=== PATIENT | male | born 1955 | race Caucasian/White ===

== ENCOUNTER 2023-10-08 06:59 | Day surgery (SDC) | payer MEDICARE, SELFPAY ==
[2023-10-08] VITALS (18 sets, daily range): BP systolic 98–125; BP diastolic 59–83; BMI 30.1
[2023-10-08 07:46] LABS: Glucose - Point of Care 105 mg/dl (70-99)
[2023-10-08 07:47] LABS: Hematocrit 43.2 % (39.0-52.0); Mean Corp Hgb Conc. 34.7 g/dL (33.0-37.0); Mean Corpuscular Hgb 28.4 pg (27.0-31.0); Mean Corpuscular Volume 81.8 fL (80.0-94.0); Mean Platelet Volume 9.7 fL (7.4-10.4); Platelet Count 247 10^3/uL (130-400); Red Blood Cell Count 5.28 10^6/uL (4.70-6.10); Red Cell Dist. Width 15.8 % (11.5-14.5); White Blood Cell Count 7.7 10^3/uL (4.8-10.8)
[2023-10-08 07:53] LABS: Blood Urea Nitrogen 24 mg/dl (9-20); Calcium 9.2 mg/dl (8.4-10.2); Carbon Dioxide 30 mmol/L (22-30); Chloride 103 mmol/L (98-107); Estimated Creatinine Clearance 76 ml/min; Glucose 109 mg/dl (70-99); Potassium 3.8 mmol/L (3.5-5.1); Sodium 136 mmol/L (135-145); eGFR > 60.00
[2023-10-08 08:04] LABS: APTT 25.6 Sec (23.4-35.0); INR 0.95; PT 12.4 Sec (11.4-14.6)
--- NOTE | 2023-10-08 08:44 | W.SUR.PREOP ---
Pre-Operative Surgical Note
-
I have examined this patient prior to the performance of the scheduled procedure.
The patient's condition is unchanged from the time of the current History and
Physical and the patient is able to undergo the scheduled procedure.
[2023-10-08] MEDS: SUBLIMAZE 50 MCG IV ×2 (10:20→10:36)
[2023-10-08 12:24] LABS: Glucose - Point of Care 64 mg/dl (70-99)
[2023-10-08 12:51] LABS: Glucose - Point of Care 70 mg/dl (70-99)
[2023-10-08 13:15] LABS: Glucose - Point of Care 88 mg/dl (70-99)
--- NOTE | 2023-10-08 14:51 | OR.RPT ---
Addendum entered and electronically signed by Mihai Guillory III, MD 10/08/23 15:06:
Please note:
History and indications for Procedure in the op note were entered in error. The indication for the procedure on Mr. Yaniv Garcia was for critical limb threatening ischemia with non-healing foot wounds on the left.
Mihai Guillory III, MD
Original Note:
Operative Report
Operative Report
Date of Operation: October 08, 2023
Pre Op Diagnosis: Critical limb threatening ischemia with nonhealing wounds on the left foot
Post Op Diagnosis: Critical limb threatening ischemia with nonhealing wounds on the left foot
Procedure:
1.) Intravascular lithotripsy of left origin/proximal anterior tibial artery stenosis (3.5 mm S4 shockwave catheter)
2.) Intravascular lithotripsy of calcified left above-knee popliteal artery stenosis (6 mm M5 shockwave catheter)
3.) Diagnostic aortobiiliac arteriogram
4.) Diagnostic left lower extremity arteriogram
5.) Ultrasound-guided right common femoral artery access
Surgeon: Mihai Guillory III, MD
Film Painter: Silvio Cotter MD PGY-1
Anesthesia: Sedation with local
Fluoroscopy:
26.1 min
237 mGy
61.02 Gy.cm2
Complications: None
Estimated Blood Loss: 10 cc
History and Indications for Procedure: 79-year-old male with thrombosed right lower extremity bypass status post initiation of arterial thrombolysis on 10/07/2023. He was brought back to the operating room for a lysis check.
Procedure in Detail: Yaniv Garcia was correctly identified and placed supine on the operating table. After adequate induction of anesthesia the bilateral groins were prepped and draped in the usual sterile fashion. A timeout was performed with the
nursing and anesthesia staff confirming the patient's identity as well as the nature and laterality of the procedure.
The right common femoral artery was identified under ultrasound guidance. The artery was patent. The superior and inferior aspects of the femoral head were identified with radiographic guidance and marked at the skin level. The proposed puncture
site was infiltrated with local anesthesia. We saved a copy of the ultrasound image to the medical record. Under ultrasound guidance we accessed the right common femoral artery with a micropuncture needle and upsized to a 5 Fr sheath over a MyFuelUpson
wire. The wire and a Shepherds hook flush catheter were advanced into the distal abdominal aorta and a diagnostic aorto-biiliac arteriogram was performed:
AORTO-ILIAC ARTERIOGRAM:
Aorta: Patent with no stenosis identified
Right common iliac artery: Patent with no stenosis identified
Right external iliac artery: Patent with no stenosis identified
Left common iliac artery: Patent with no stenosis identified
Left external iliac artery: Patent with no stenosis identified
Under roadmap guidance using a Glidewire and the Shepherds hook catheter we selected the left common iliac artery and then the external iliac artery. A Quickcross catheter was tracked up and over the aortic bifurcation and placed in the distal
external iliac artery. A diagnostic left lower extremity arteriogram was then performed which demonstrated the following:
LEFT LOWER EXTREMITY:
Common femoral artery: Patent with no stenosis identified
Profunda femoral artery: Patent with no stenosis identified
Superficial femoral artery: Patent. Stents present in the proximal and mid to distal portions are patent. Mild in-stent restenosis identified.
Popliteal artery: Calcified. Areas of luminal irregularity and stenosis identified in the above-knee popliteal artery extending behind the knee. The distal below-knee popliteal artery extending to the origin of the anterior tibial artery
demonstrated a focal critical stenosis.
Sluggish flow was identified beyond the popliteal artery likely due to the significant outflow disease in the tibial arteries and small vessels of the foot.
Anterior tibial artery: Focal critical stenosis at the origin. Patent beyond this with no stenosis to the ankle. Occludes abruptly at the ankle and gives off a lateral collateral branch into the foot. Dorsalis pedis is occluded.
Tibioperoneal trunk: Occluded
Peroneal artery: Occluded. There is segmental reconstitution of the distal peroneal artery by anterior tibial artery branches. The peroneal artery and reconstitutes the posterior tibial artery behind the ankle
Posterior tibial artery: Occluded. Reconstitutes behind the ankle with limited flow into the foot.
*Significant small vessel disease is identified diffusely in the foot
ENDOVASCULAR INTERVENTION:
Systemic heparin was administered. We selected the left superficial femoral artery with the Glidewire and Quickcross. Exchanged out for a 6 Fr 70 cm sheath over a Storq wire. Selected the popliteal below the knee artery under roadmap guidance with
Quickcross catheter and glidewire. The anterior tibial artery origin stenosis was crossed with a Quickcross and Glidewire. The wire and catheter were advanced into the mid anterior tibial artery and subtraction angio confirmed proper position in the
true lumen. Exchanged out for a 0.014 wire. Due to the calcified nature of the arterial disease and in an effort to modify the calcium to achieve maximum luminal gain with endovascular intervention I elected to proceed with intravascular
lithotripsy. A 3.5 mm x 40 mm S4 shockwave balloon was placed across the anterior tibial artery stenosis under roadmap guidance. Alternating rounds of lithotripsy pulse delivery at sub-nominal pressure and angioplasty at nominal pressure was
performed across the stenosis. In between rounds of pulse delivery and angioplasty the balloon was deflated and repositioned under roadmap guidance. All 160 pulses were delivered. Subsequent arteriogram demonstrated an excellent technical result
with a widely patent anterior tibial artery origin with no significant residual stenosis in the anterior tibial artery identified.
I then focused my attention on treating the calcified above-knee popliteal artery disease. Due to the heavily calcified nature of the popliteal artery disease and in an effort to modify the calcium to achieve maximum luminal gain with endovascular
intervention I elected to proceed with intravascular lithotripsy. A 6 mm x 60 mm Shockwave balloon was placed across the stenosis under roadmap guidance. Alternating rounds of lithotripsy pulse delivery at sub-nominal pressure and angioplasty at
nominal pressure was performed across the stenosis. In between rounds of pulse delivery and angioplasty the balloon was deflated and repositioned under roadmap guidance. All 300 pulses were delivered.
COMPLETION ARTERIOGRAM: Excellent technical result. Patent superficial femoral and popliteal arteries with no significant residual stenosis. Patent anterior tibial artery origin with no significant residual stenosis identified. Anterior tibial
artery is the single vessel tibial artery runoff which once again occludes at the ankle, giving off a lateral branch to the foot. The dorsalis pedis artery is occluded. The peroneal artery reconstitutes in the mid calf which then reconstitutes the
posterior tibial artery. Visualization of flow into the foot is much improved following endovascular intervention.
Satisfied with this result we then concluded the procedure. The sheath tip was pulled back into the right external iliac artery. Protamine was administered. The sheath was secured in place with the plan to pull it in the recovery room.
The patient tolerated the procedure well and was taken to the recovery area in stable condition.
Attestation: I was present and responsible for the entire procedure.
Signed:
Mihai Guillory III, MD
[facility]
[phone] (hyoa)
--- NOTE | 2023-10-08 15:09 | PTCARENOTE ---
Discharge instructions given to patient. All instructions understood by patient. D/C paperwork signed. VSS and right groin site c/d/i and ready for discharge home.
== END 2023-10-08 15:30 | disposition home or self-care (01) ==
LOC: CATH 06:59
PROVIDERS: ATTENDING PHYSICIAN Surgery Vascular Surgery
DX: I70.245 Atherosclerosis of native arteries of left leg with ulceration of other part of foot (principal); L97.529 Non-pressure chronic ulcer of other part of left foot with unspecified severity; Z87.891 Personal history of nicotine dependence; I25.2 Old myocardial infarction; E11.9 Type 2 diabetes mellitus without complications; I10 Essential (primary) hypertension; Z79.4 Long term (current) use of insulin; Z79.82 Long term (current) use of aspirin
CPT/HCPCS: C9764; C9772; 75625; 75716; 76937; 80048; 82962; 85027; 85610; 85730; 86850; 86900; 86901; C1769; C1894; Q9967

== ENCOUNTER → 2023-11-11 09:05 | Outpatient (REF) | payer MEDICARE, SELFPAY | LOC: RAD 09:05 | PROVIDERS: ATTENDING PHYSICIAN Surgery Vascular Surgery; FAMILY PHYSICIAN Family Medicine | DX: I73.9 Peripheral vascular disease, unspecified (principal) | CPT/HCPCS: 93922; 93925 ==

== ENCOUNTER → 2024-05-25 11:08 | Outpatient (REF) | payer MEDICARE, SELFPAY | LOC: RAD 11:08 | PROVIDERS: ATTENDING PHYSICIAN Physician Assistant; FAMILY PHYSICIAN Family Medicine | DX: I77.9 Disorder of arteries and arterioles, unspecified (principal); I70.222 Atherosclerosis of native arteries of extremities with rest pain, left leg | CPT/HCPCS: 93922; 93925 ==

== ENCOUNTER → 2025-07-31 09:17 | Outpatient (REF) | payer MEDICARE, SELFPAY | LOC: DHVS 09:17 | PROVIDERS: ATTENDING PHYSICIAN Surgery Vascular Surgery | DX: I77.9 Disorder of arteries and arterioles, unspecified (principal) | CPT/HCPCS: 93922; 93925 ==

== ENCOUNTER 2025-08-24 12:44 | Inpatient (IN) | payer MEDICARE, SELFPAY ==
[2025-08-24] VITALS (14 sets, daily range): BP systolic 102–158; BP diastolic 69–87; BMI 29.0
[2025-08-24 09:28] LABS: Hematocrit 41.3 % (39.0-52.0); Hemoglobin 14.5 g/dL (13.0-18.0); Mean Corp Hgb Conc. 35.1 g/dL (33.0-37.0); Mean Corpuscular Volume 85.0 fL (80.0-94.0); Platelet Count 269 10^3/uL (130-400); Red Cell Dist. Width 13.0 % (11.5-14.5)
[2025-08-24 09:35] LABS: INR 1.09; PT 14.2 Sec (11.4-14.6)
[2025-08-24 09:36] LABS: APTT 29.8 Sec (23.4-35.0)
[2025-08-24 09:43] LABS: Blood Urea Nitrogen 15 mg/dl (9-20); Calcium 8.9 mg/dl (8.4-10.2); Carbon Dioxide 21 mmol/L (22-30); Chloride 95 mmol/L (98-107); Estimated Creatinine Clearance 101 ml/min; Glucose 333 mg/dl (70-99); Potassium 4.8 mmol/L (3.5-5.1); Sodium 128 mmol/L (135-145); eGFR > 60.00
[2025-08-24 09:44] LABS: Glucose - Point of Care 320 mg/dl (70-99)
[2025-08-24] MEDS: NSS 500 IV (09:45)
[2025-08-24] MEDS: ROXICODONE 5 MG PO ×2 (10:01→10:02)
[2025-08-24] MEDS: NOVOLOG vial 100 UNITS SC (10:09)
[2025-08-24 10:47] LABS: Glucose - Point of Care 342 mg/dl (70-99)
[2025-08-24 11:48] LABS: ACT-LR - POC 210 Seconds (116-155)
[2025-08-24 11:54] LABS: Glucose - Point of Care 270 mg/dl (70-99)
[2025-08-24 13:22] LABS: Glucose - Point of Care 226 mg/dl (70-99)
[2025-08-24] MEDS: PLAVIX 300 MG PO (13:34)
[2025-08-24] MEDS: NOVOLOG vial 2 UNITS SC (13:37)
[2025-08-24] MEDS: ASPIR LOW (ENTERIC COATED) 81 MG PO (13:40)
[2025-08-24 13:55] LABS: GGTP 18 U/L (15-73); Magnesium 1.9 mg/dl (1.6-2.3)
[2025-08-24 14:17] LABS: Glycohemoglobin (HgbA1c) 11.9 % (4.0-5.9)
--- NOTE | 2025-08-24 14:40 | PN.DE.MGMTRT ---
Insulin Management
- -
08/24/2025: Diabetes Management Consult
69 year old male admitted for elective
PMH: HTN, HLD, CAD s/p ND, Paroxysmal Atrial Fibrillation, GERD, Anxiety/ Depression, PAD s/p toe amputations and Poorly controlled T2DM. A1C is 11.9%, Cr 0.8, eGFR>60
Patient awake alert, oriented, resting in bed, offers no complaints, able to discuss diabetes care plan.
States he sees Endo Dr. Alcala in [facility]. Uses CGM- uTest G7. Was taking Lantus 90 units @ HS and Lispro 27 units TID, and metformin 1000mg BID
Venous glucose was 333 prior to OR. He is ordered corrective insulin only.
Expect prolonged hyperglycemia with increased insulin requirements based on current A1C, fasting glucose, high insulin dose [employer]TER [employer] and multiple comorbid effects / amputations / etc.
Will start basal bolus insulin regimen. Start Lantus 90 units @ HS and NovoLog AC 27 units. Cont corrective insulin with meals
HOLD off on resuming Metformin for now.
Closely monitor glucose trend and adjust insulin doses as needed for optimal glycemic control.
Diabetes History
- -
Type of Diabetes: 2 requiring insulin
Pre-Admission Diabetes Regimen
08/24/25
09:13
Creatinine 0.8
Lab Results
Hemoglobin A1c 11.9 % (4.0-5.9) H 08/24/25 13:23
Insulin Pump Settings
IP Diabetes Regimen
08/24/25 08/24/25 08/24/25
09:13 09:32 10:23
Glucose 333 H
POC Glucose 320 H 342 H
08/24/25 08/24/25
11:41 13:20
Glucose
POC Glucose 270 H 226 H
Patient Education
--- NOTE | 2025-08-24 15:14 | OR.RPT ---
Operative Report
Operative Report
Date of Operation: 08/24/2025
Pre Op Diagnosis:
1. [place] artery atherosclerosis and occlusion with left toe gangrene
2. Limb threatening ischemia, left lower extremity
3. Diabetes with peripheral artery occlusive disease and gangrene
Post Op Diagnosis:
1. [place] artery atherosclerosis and occlusion with left toe gangrene
2. Limb threatening ischemia, left lower extremity
3. Diabetes with peripheral artery occlusive disease and gangrene
Procedure:
1. Intravascular lithotripsy to left posterior tibial artery occlusion using Shockwave javelin
2. Bioabsorbable drug-eluting scaffold stent placement to left distal below knee popliteal artery extending to the proximal tibioperoneal trunk (3.75 x 38 mm Grubbs Esprit, postdilated to 4 mm)
3. Bioabsorbable drug-eluting scaffold stent placement to tibioperoneal trunk extending into proximal posterior tibial artery (3 mm x 38 mm Grubbs Esprit, postdilated to 3.5 mm)
4. Bioabsorbable drug-eluting scaffold stent placement to mid and distal posterior tibial artery (2.5 mm x 38 mm Grubbs Esprit, postdilated to 3 mm mid PT; 3 mm x 28 mm Grubbs Esprit distal PT)
5. Drug-coated balloon angioplasty to in-stent restenosis distal left SFA and above-knee popliteal artery stenosis (6 mm x 150 mm Lutonix)
6. Balloon angioplasty and stenting of left popliteal artery stenosis (7 mm x 170 mm LifeStent)
7. Diagnostic aortobiiliac arteriogram
8. Diagnostic left lower extremity arteriogram
9. Ultrasound-guided percutaneous RETROGRADE pedal access, left posterior tibial artery at the ankle
10. Ultrasound-guided percutaneous right common femoral artery access
Surgeon: Mihai Guillory III, MD
Staff Auditor: Mellisa Parker MD PGY-6
Anesthesia: Sedation with local
Fluoroscopy:
53.8 min
181 mGy
50.35 gy.cm2
Complications: None
Estimated Blood Loss: Less than 20 cc
History and Indications for Procedure: 69-year-old male with poorly controlled diabetes and known peripheral arterial disease. Presents with severe pain in his left foot coupled with a nonhealing gangrenous toe wound.
Procedure in Detail: Yaniv Garcia was correctly identified and placed supine on the operating table. After adequate induction of anesthesia the bilateral groins were prepped and draped in the usual sterile fashion. A timeout was performed with the
nursing and anesthesia staff confirming the patient's identity as well as the nature and laterality of the procedure.
The right common femoral artery was identified under ultrasound guidance. The artery was patent. The superior and inferior aspects of the femoral head were identified with radiographic guidance and marked at the skin level. The proposed puncture
site was infiltrated with local anesthesia. Under ultrasound guidance we accessed the right common femoral artery with a micropuncture needle and upsized to a 5 Fr sheath over a Expertcloud.de wire. The wire and a Shepherds hook flush catheter were
advanced into the distal abdominal aorta and a diagnostic aorto-biiliac arteriogram was performed:
AORTO-ILIAC ARTERIOGRAM:
Aorta: Widely patent with no stenosis identified
Right common iliac artery: Widely patent with no stenosis identified
Right external iliac artery: Widely patent with no stenosis identified
Left common iliac artery: Widely patent with no stenosis identified
Left external iliac artery: Widely patent with no stenosis identified
Under roadmap guidance using a Glidewire and the Shepherds hook catheter we selected the left common iliac artery followed by the external iliac artery and then the common femoral artery. A catheter was tracked up and over the aortic bifurcation and
placed in the common femoral artery. A diagnostic left lower extremity arteriogram was then performed which demonstrated the following:
LEFT LOWER EXTREMITY:
Common femoral artery: Widely patent with no stenosis identified
Profunda femoral artery: Widely patent with no stenosis identified
Superficial femoral artery: Patent. SFA stents are patent. The stent in the distal SFA has diffuse in-stent restenosis.
Popliteal artery: calcified. Areas of moderate to high-grade stenosis identified above the knee. Patent behind the knee. High-grade stenosis below the knee with a terminal occlusion.
Anterior tibial artery: Occluded at its origin. Reconstitutes proximally via collaterals. Continues distally to the ankle. High-grade focal stenosis identified in the midportion. The AT appears to occlude at the ankle but gives of collateral
branches into the foot. The dorsalis pedis artery appears to be occluded aseen on prior arteriogram
Tibioperoneal trunk: Occluded
Peroneal artery: Occluded proximally with distal reconstitution
Posterior tibial artery: Occluded proximally. Reconstitutes distally at the distal calf. Continues across the ankle to form plantar branches which supply the forefoot.
ENDOVASCULAR INTERVENTION: Systemic heparin was administered. Exchanged out for a 6 Fr 45 cm sheath over a Grasswire wire. Selected the superficial femoral artery under roadmap guidance. The superficial femoral artery in-stent restenosis and the
popliteal artery stenosis were crossed with a Quickcross and Glidewire. The wire and catheter were advanced into the below-knee popliteal artery. Under roadmap guidance I attempted to cross the terminal popliteal artery occlusion and recanalize
the anterior tibial artery but could not make meaningful progress. I made additional attempts to redirect the wire in order to recanalize the tibioperoneal trunk and posterior tibial artery but could not successfully accomplish this from an up and
over approach. I therefore made the decision to continue with a retrograde pedal artery access approach.
The left foot was prepped in the usual sterile fashion. Under ultrasound guidance I successfully accessed the posterior tibial artery at the ankle in a retrograde fashion with a micropuncture needle. I then upsized to a 5 [place] radial artery
sheath over the microwire. The radial artery cocktail was administered. Using a 0.014 Quickcross and a combination of Mongo wire and Glidewire advantage I was able to cross the entire length of the posterior tibial artery occlusion, tibioperoneal
trunk occlusion and distal popliteal artery occlusion. The 0.014 wire was advanced retrograde through the popliteal artery and positioned in the distal superficial femoral artery stent.
Due to the calcified and occluded nature of the posterior tibial artery and tibioperoneal trunk disease and in an effort to successfully cross the lesion, modify the calcium and achieve luminal gain with endovascular intervention I elected to
proceed with intravascular lithotripsy with a Shockwave Javelin catheter. The Javelin catheter was brought into position under radiographic guidance over the 0.014 wire. The Javelin catheter was advanced through the entire posterior tibial artery
and tibioperoneal trunk while simultaneously delivering lithotripsy pulses. All 120 pulses were delivered. Subsequent arteriogram demonstrated significant improvement with luminal gain and now patent tibioperoneal trunk and posterior tibial artery.
I then followed this with a 3 mm x 220 mm angioplasty balloon. Two separate inflations were performed at nominal pressure across the entire length of diseased/occluded posterior tibial artery and tibioperoneal trunk extending to the below-knee
popliteal artery. The balloon was positioned in the desired location and inflated to nominal pressure, holding in place for 3 minutes at each segment.
Subsequent to this on arteriogram demonstrated an excellent technical result with a widely patent tibioperoneal trunk and posterior tibial artery. There was an area of dissection in the terminal popliteal artery extending through the tibioperoneal
trunk that was previously occluded and into the proximal posterior tibial artery. From a retrograde approach at the ankle I then treated this segment with 2 overlapping drug-eluting bioabsorbable scaffolds. The initial stent, a 3 mm x 38 mm Grubbs
Esprit was positioned under roadmap guidance in the distal TP trunk/proximal posterior tibial artery. This was deployed in the desired location. I then postdilated this with a 3.5 mm x 40 mm angioplasty balloon. The second stent, a 3.75 mm x 38
mm Grubbs Esprit was extended proximally through the tibioperoneal trunk and into the distal below-knee popliteal artery. The stent was deployed in the desired location, taking the balloon pressure to rated burst in order to achieve a 4 mm
diameter. Subsequent arteriogram demonstrated an excellent technical result in this location. There was an area of dissection and residual stenosis in the more distal posterior tibial artery which I treated with a 3 mm x 28 mm Grubbs Esprit.
I then focused our attention on the in-stent restenosis and popliteal artery stenosis. From an up and over approach I placed a Storq wire and positioned the tip in the below-knee popliteal artery. A 6 mm x 150 mm Lutonix drug-coated angioplasty
balloon was positioned across the in-stent restenosis and the popliteal artery stenosis above the knee. The balloon was inflated to nominal pressure and held in place for 3 minutes. Subsequent arteriogram demonstrated an improvement suboptimal
result. I then placed a 7 mm x 170 mm LifeStent in the popliteal artery, extending back to the distal superficial femoral artery stent and slightly overlapping with the distal aspect of this existing stent. This was positioned in the desired
location and deployed. The stent was then profiled with a 7 mm angioplasty balloon. Subsequent arteriogram demonstrated an excellent technical result with a widely patent superficial femoral artery and popliteal artery stent and no significant
residual stenosis identified.
Runoff arteriogram demonstrated a patent posterior tibial artery. I did identify 1 additional area of dissection within the mid posterior tibial artery. This was treated with a 2.5 mm x 38 mm Music Mastermind Esprit stent. The balloon was inflated to rated
burst pressure in order to achieve a 3 mm diameter.
Subsequent arteriogram demonstrated an excellent technical result with a widely patent posterior tibial artery throughout no significant residual stenosis, filling defects or dissection identified.
Satisfied with this result we concluded the procedure. The sheath tip was pulled back into the right external iliac artery. Protamine was administered. The femoral access sheath and the retrograde pedal access sheath were both pulled and manual
pressure was held over the puncture sites until hemostasis was achieved. Sterile dressings were applied.
The patient tolerated the procedure well and was taken to the recovery area in stable condition. The patient had a palpable posterior tibial artery pulse with a robust Doppler signal at the conclusion of the case.
Attestation: I was present and responsible for the entire procedure.
Signed:
Mihai Guillory III, MD
Vascular Surgery
[facility]
[2025-08-24] MEDS: NSS 1000 IV (15:23)
[2025-08-24] MEDS: HEPARIN 5000 UNITS SC (15:25)
[2025-08-24] MEDS: NEURONTIN 600 MG PO ×2 (15:25→22:03)
[2025-08-24] MEDS: TYLENOL 650 MG PO (15:26)
--- NOTE | 2025-08-24 16:05 | PTCARENOTE ---
Pt arrived to 2S via stretcher, slid to bed with assistance from NSG staff. Activity restrictions maintained and reviewed with pt, pt verbalized understanding. R groin and L ankle sites C/D/I, soft around and no edema noted. +Doppler pulses. IVF
initiated. Generalized scabbing noted to B/L hands. Black scabbed areas noted to L 3rd toe and R 2nd toe. Amputations noted to L 1st 2nd and 5th toes and R 1st 2nd 3rd and 5th toes. Bed locked and in the lowest position, safety maintained. Oriented
to room and call dutta.
[2025-08-24 16:41] LABS: Glucose - Point of Care 176 mg/dl (70-99)
--- NOTE | 2025-08-24 17:19 | CON.MD ---
Consultation - Medical
-
Patient is a 69 year old male who is seen at bedside. He was admitted today post left LE revascularization with Dr. Guillory. His left 3rd to has become dry and gangrenous.
PMH:
PAD
Colon Polyps
Depression
GERD
Multiple vessel CAD
DC - S/P CABG x2
DM2
Essential Hypertension
HLD
Paroxysmal Atrial Fibrillation
Pericardial Effusion
Critical limb ischemia
Meds:
Reviewed on Chart
PSH:
Multiple digital amputations
LE vascular surgery
CABG x2
Allergies:
codeine, statins, tylenol
Family History:
non pertinent
Social History:
Former smoker, denies illicit drug use
PE: Foot warm to touch, rubor present, loss of pedal hair, Multiple digital amputations. Remaining is the 4th toe and the third toe on the left foot. The third toe is dark, dry and necrotic. No fluid, no malodor. Dry gangrene is hard to touch. \\
Assessment/Plan:
Left third toe dry gangrene
PAD
DM2
We discussed amputation of the toe at length. He is very polite and understands that he will require amputation given the dry gangrenous changes to the toe. He is anxious to leave and would prefer to have any additional surgery closer to home at
[facility]. I recommend that he have to the amputation here on wednesday. 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
[2025-08-24] MEDS: LANTUS 0.9 UNITS SC (17:36)
[2025-08-24] MEDS: NOVOLOG FLEXPEN 27 UNITS SC (17:37)
[2025-08-24] MEDS: NOVOLOG FLEXPEN-HIGH RESISTANCE 2 UNITS SC (17:37)
[2025-08-24] MEDS: LIORESAL 10 MG PO (20:19)
[2025-08-24 21:14] LABS: Glucose - Point of Care 93 mg/dl (70-99)
[2025-08-24 21:17] LABS: Urine Character Clear (Clear)
[2025-08-24 21:31] LABS: Urine Red Blood Cell 0-2 /HPF (0-2); Urine Squamous Cell None seen /LPF (Few); Urine White Cell 0-2 /HPF (0-5)
[2025-08-25] MEDS: HEPARIN 5000 UNITS SC ×4 (00:12→23:28)
[2025-08-25 03:01] LABS: Glucose - Point of Care 77 mg/dl (70-99)
[2025-08-25 03:15] VITALS: BP 130/71
[2025-08-25 07:05] LABS: Hematocrit 37.5 % (39.0-52.0); Hemoglobin 12.8 g/dL (13.0-18.0); Mean Corp Hgb Conc. 34.1 g/dL (33.0-37.0); Mean Corpuscular Volume 85.6 fL (80.0-94.0); Platelet Count 243 10^3/uL (130-400); Red Cell Dist. Width 13.2 % (11.5-14.5)
[2025-08-25 07:06] VITALS: BP 112/73
[2025-08-25 07:06] LABS: Glucose - Point of Care 111 mg/dl (70-99)
[2025-08-25 07:33] LABS: Blood Urea Nitrogen 14 mg/dl (9-20); Calcium 8.2 mg/dl (8.4-10.2); Carbon Dioxide 24 mmol/L (22-30); Chloride 103 mmol/L (98-107); Estimated Creatinine Clearance 116 ml/min; Glucose 121 mg/dl (70-99); Potassium 4.4 mmol/L (3.5-5.1); Sodium 134 mmol/L (135-145); eGFR > 60.00
[2025-08-25] MEDS: NOVOLOG FLEXPEN-HIGH RESISTANCE 1 UNITS SC (08:12)
[2025-08-25] MEDS: NOVOLOG FLEXPEN 27 UNITS SC (08:12)
[2025-08-25] MEDS: CYMBALTA DELAYED RELEASE 60 MG PO (08:13)
[2025-08-25] MEDS: PLAVIX 75 MG PO (08:13)
[2025-08-25] MEDS: ZETIA 10 MG PO (08:13)
[2025-08-25] MEDS: ASPIR LOW (ENTERIC COATED) 81 MG PO (08:13)
[2025-08-25] MEDS: NEURONTIN 600 MG PO ×3 (08:13→21:03)
[2025-08-25] MEDS: TOPROL XL 25 MG PO (08:14)
[2025-08-25] MEDS: LIORESAL 10 MG PO ×2 (08:14→21:03)
[2025-08-25] MEDS: TRICOR 145 MG PO (08:14)
[2025-08-25 11:18] VITALS: BP 123/68
[2025-08-25 11:56] LABS: Glucose - Point of Care 67 mg/dl (70-99)
[2025-08-25 11:56] LABS: Glucose - Point of Care 58 mg/dl (70-99)
[2025-08-25 12:19] LABS: Glucose - Point of Care 66 mg/dl (70-99)
[2025-08-25] MEDS: NOVOLOG FLEXPEN SC (12:48)
[2025-08-25] MEDS: NOVOLOG FLEXPEN-HIGH RESISTANCE SC (12:48)
[2025-08-25] MEDS: DEXTROSE 50% SYRINGE 12.5 GRAMS IV (12:51)
[2025-08-25 13:24] LABS: Glucose - Point of Care 204 mg/dl (70-99)
--- NOTE | 2025-08-25 14:51 | W.PN.VS ---
Today's Communication / Plan
-
POD 1 LLE angio with intervention
- Consult hospitalist for assistance with BG management
- continue ASA and plavix
- podiatry to consider inpatient amputation
Assessment/Plan
-
POD 1 LLE angio with intervention
- Consult hospitalist for assistance with BG management
- continue ASA and plavix
- podiatry to consider inpatient amputation
Subjective Data
-
Date of Service: August 25, 2025
Symptomatic hypoglycemia
Angio yesterday
Some foot discomfort
Agreeable to amputation while in hospital now
Objective Data
-
Vital Signs
Temp Pulse Resp BP Pulse Ox
97.6 F 89 16 123/68 99
08/25/25 11:18 08/25/25 11:18 08/25/25 11:18 08/25/25 11:18 08/25/25 11:18
Intake and Output
08/24/25 08/25/25 08/26/25
06:59 06:59 06:59
Intake Total 340 / 340
Output Total 1000 / 1000
Balance -660 / -660
Intake:
IV fluids (Total) 340 / 340
NSS 100 / 100
Output:
Urine, Voided 1000 / 1000
Lab Results
08/25/25 05:34
08/25/25 05:34
Calcium 8.2 mg/dl (8.4-10.2) L 08/25/25 05:34
Phosphorus 3.7 mg/dl (2.5-4.5) 08/24/25 13:23
Magnesium 1.9 mg/dl (1.6-2.3) 08/24/25 13:23
Physical Exam
-
2+ PT bilaterally
mild edema LLE
gangrene L 3rd toe
groin soft
--- NOTE | 2025-08-25 15:07 | W.PN.UPDATE ---
Update Note
Progress Note Update
HOSPITALIST CONSULTATION to VAS service
This note serves as an addendum to the H&P by business risk analyst MILADYS�
Casie PARISH�
HPI
69M
PMHX: Multi V CAD, WV, CABG, IDDMT2, High dose Insulin need ( LADIES SUIT OPERATOR Lantus 90 HS, Lispro 27AC, Rapatha QSat ) severe PVD, multiple toe amputess a/w Lt Toe 3 toe gangrene, pending amputation, consulted to us diabetes management status post left lower
extremity revascularization with Dr. Guillory.
Current Lt toe 3 dry gangrene plan for amputation on Wednesday.
Patient consulted to assess for diabetes management
- hypoglycemia on Lantus 90 units and NovoLog 27 units with meals.
PSHX
PTCA with Stents
LLE Stents
R Second Toe Amputation
Multiple L Toe Amputations
Left Knee Surgery
Left Shoulder Surgery
Spinal Fusion
Relevant VS
Vital Signs
Temp Pulse Resp BP Pulse Ox
98.0 F 97 16 130/79 99
08/25/25 15:28 08/25/25 15:28 08/25/25 15:28 08/25/25 15:28 08/25/25 15:28
PE
Gen: Nontoxic , conversant , appropriate, NAD
MS: R Second Toe well healed Amputee. Lt toe 3 dry gangrene
08/24/25 08/25/25 08/25/25
21:12 02:59 07:04
POC Glucose 93 77 111 H
08/25/25 08/25/25 08/25/25
11:52 12:17 13:22
POC Glucose 58 L 66 L 204 H
07/24/23 08/24/25
06:23 13:23
Hemoglobin A1c 12.5 H 11.9 H
ASSESSMENT & PLAN
Hypoglycemic episode
Poorly control DM suspect brittle DM
Uncertain OP dietary and insulin compliance
A1C 11.9 ( 08/24/25)
- Noted DM TRACK SUPERVISOR on board
- c/w 2000 Jaylan diet
- BG goal should be less tighter - permissive hyperglycemia 110- 160
- Modify current basal bolus Insulin regime to NovoLog 14units AC + Lantus 45HS
- Modify ISS to moderate in place of High
Lt Toed 3 Gangrene
- Plan for amputation on Wednesday
Established ASCVD with PAD, CAD
HX PAD
- S/p left lower extremity revascularization with Dr. Guillory
- c/w DAPL Aspirin and Plavix continued
CAD HX
-NSTEMI status post PCI 2016 (HANNA to LAD
-s/p CABG x2, (HANNA to LAD, SVG to right posterolateral artery) 04/21/2023
- on LADIES SUIT OPERATOR BB, DAPL , , fenofibrate and statin
Prx AF
- Amiodarone
- on TLM
Depression
- Stable.
- on duloxetine.
p Hypertension
DVT Px: SQH
Full code
--- NOTE | 2025-08-25 15:08 | CON.HOSP ---
Family Physician
-
Family Physician: Stacy Stone, DO
Chief Complaint
-
Dm management
History of Present Illness
69 year old with PMh for DM with peripheral artery occlusive disease and gangrene, colon polyps, depression, GERD, multiple vessel coronary disease, NH status post CABG, hypertension, hyperlipidemia, paroxysmal A-fib, pericardial effusion consulted
to us diabetes management status post left lower extremity revascularization with Dr. Guillory. Patient was also noted to have left third toe dry gangrene plan for amputation on Wednesday. Patient consulted to assess for diabetes management due to
hypoglycemia on Lantus 90 units and NovoLog 27 units with meals. At present patient denied any headache, dizzy or syncope. Patient denies any fever, chills, chest pain or short of breath. Patient denied any abdominal pain, nausea, vomiting or
diarrhea. Patient denies dysuria,hematuria.
Medical History
Past Medical History
Past Medical History: Reports Other
Additional Past Medical History:
CAD, PAD)
DM-II
Hypertension
Anxiety / Depression
GERD
Hypogonadism
Atrial Fibrillation - Unknown Type
Pericardial Effusion
Obesity
Past Surgical History: Reports Other
Additional Past Surgical History:
PTCA with Stents
LLE Stents
R Second Toe Amputation
Multiple L Toe Amputations
Left Knee Surgery
Left Shoulder Surgery
Spinal Fusion
Social History
Tobacco: Former Smoker
Alcohol: None
Living: With Family
Family History
Family History: Reviewed & Not Pertinent
Allergies / Home Medications
Allergies reflects when Allergies were last updated in [facility].
Home Medications with original date entered in [facility]
Allergy/Medication List:
Allergies
Allergy/AdvReac Type Severity Reaction Status Date / Time
amoxicillin Allergy dizziness Verified 08/24/25 09:21
codeine Allergy Rash Verified 08/24/25 09:21
[id number] Reductase Allergy back pain Verified 08/24/25 09:21
Inhibitor
Home Medications
apixaban 5 mg tablet (Eliquis) 5 mg PO BID Blood Clot Prevention/Tx 07/24/23
ezetimibe 10 mg tablet (Zetia) 10 mg PO DAILY High Cholesterol 07/24/23
fenofibrate nanocrystallized 145 mg tablet 145 mg PO DAILY High Cholesterol 07/24/23
insulin glargine 100 unit/mL (3 mL) subcutaneous pen (Lantus Solostar U-100 Insulin) 90 unit SC QPM Diabetes 07/24/23
insulin lispro 100 unit/mL subcutaneous pen (Humalog KwikPen (U-100) Insulin) 27 unit SC TID Diabetes 07/24/23
evolocumab 140 mg/mL subcutaneous syringe (Repatha Syringe) 140 mg SC SA High Cholesterol 08/23/25
pantoprazole 20 mg tablet,delayed release 20 mg PO DAILYPRN PRN hiccups 08/23/25
aspirin 81 mg tablet,delayed release 81 mg PO DAILY Blood Clot Prevention/Tx 08/24/25
baclofen 10 mg tablet 10 mg PO BID 08/24/25
duloxetine 60 mg capsule,delayed release 60 mg PO DAILY Mental Health/Anxiety 08/24/25
gabapentin 600 mg tablet 600 mg PO TID Neurological Condition 08/24/25
metoprolol succinate 25 mg tablet,extended release 24 hr 25 mg PO DAILY Blood Pressure 08/24/25
oxycodone 10 mg tablet 10 mg PO TID PRN pain 08/24/25
Review of Systems
-
Constitutional: Reports No Symptoms
EENT: Reports No Symptoms
Respiratory: Reports No Symptoms
Cardiac: Reports No Symptoms
Abdomen/GI: Reports No Symptoms
: Reports No Symptoms
Musculoskeletal: Reports No Symptoms
Skin: Reports No Symptoms
Neurological: Reports No Symptoms
Endocrine: Reports No Symptoms
Hematologic/Lymphatic: Reports No Symptoms
Psych: Reports No Symptoms
Physical Exam
Vital Signs
Vital Signs
Temp Pulse Resp BP Pulse Ox
97.6 F 89 16 123/68 99
08/25/25 11:18 08/25/25 11:18 08/25/25 11:18 08/25/25 11:18 08/25/25 11:18
Physical Exam
General: Well Developed, Well Nourished and No Apparent Distress
HEENT: Normocephalic, Moist Mucous Membranes and Atraumatic
Respiratory: Clear
Cardiac: S1/S2 and Regular Rhythm; Negative Murmur or Rub
GI: Soft, Non Tender, Non Distended and Normal Bowel Sounds
Rectal: Deferred by Provider
Musculoskeletal: No Clubbing, No Cyanosis and No Edema
Skin: Negative Rash
Neuro: Nonfocal/Grossly Intact
Laboratory Results
-
Laboratory Results
08/25/25 05:34
08/25/25 05:34
PT 14.2 Sec (11.4-14.6) 08/24/25 09:13
INR 1.09 08/24/25 09:13
APTT 29.8 Sec (23.4-35.0) 08/24/25 09:13
Data Reviewed
-
Lab Data: Labs Reviewed
Impression / Plan
-
# insulin dependant Type 2 diabetes
- CHO diet continue
- Sliding scale continue
- NovoLog 15 units with meal
- Lantus 45 units at bedtime
# Gangrene left third toe
- Plan for amputation on Wednesday
# History of peripheral artery disease
- S/p left lower extremity revascularization with Dr. Guillory
- Aspirin and Plavix continued
#CAD
-NSTEMI status post PCI 2016 (HANNA to LAD
-s/p CABG x2, (HANNA to LAD, SVG to right posterolateral artery) 04/21/2023
- Continue beta-yissel, Aspirin, fenofibrate and statin
#Paroxysmal Atrial Fibrillation
�- Amiodarone continued
�- Monitor on telemetry.
#Depression
�- Stable.� Continue duloxetine.
#Hypertension
#Hyperlipidemia - history of statin intolerance.
- Zetia continued
-Fenofibrate continue
DVT Prophylaxis:� On heparin
Code Status:� Full
[2025-08-25 15:27] LABS: Glucose - Point of Care 270 mg/dl (70-99)
[2025-08-25 15:28] VITALS: BP 130/79
[2025-08-25] MEDS: NOVOLOG FLEXPEN 15 UNITS SC (16:44)
[2025-08-25 16:51] LABS: Glucose - Point of Care 193 mg/dl (70-99)
[2025-08-25] MEDS: NOVOLOG FLEXPEN-MODERATE RESISTANCE 1 UNITS SC (16:51)
[2025-08-25 17:37] LABS: Glucose - Point of Care 248 mg/dl (70-99)
[2025-08-25] MEDS: LANTUS 0.45 UNITS SC (18:08)
[2025-08-25 19:30] VITALS: BP 144/83
[2025-08-25 21:40] LABS: Glucose - Point of Care 78 mg/dl (70-99)
[2025-08-25 23:20] VITALS: BP 121/72
[2025-08-26 03:11] VITALS: BP 116/68
[2025-08-26 03:17] LABS: Glucose - Point of Care 62 mg/dl (70-99)
[2025-08-26 03:45] LABS: Glucose - Point of Care 87 mg/dl (70-99)
[2025-08-26 05:43] LABS: Glucose - Point of Care 152 mg/dl (70-99)
[2025-08-26 07:15] VITALS: BP 132/75
[2025-08-26 07:21] LABS: Glucose - Point of Care 99 mg/dl (70-99)
--- NOTE | 2025-08-26 08:13 | W.PN.UPDATE ---
Update Note
Progress Note Update
Vascular surgery progress note
Patient feeling much better this morning
BG 62 at 0300, otherwise >80.
2+ PT bilaterally
L 3rd toe gangrene
Plan
Thank you to hospitalist for assistance with BG
Amputation tomorrow by podiatry
--- NOTE | 2025-08-26 08:22 | W.PN.POD ---
Today's Communication
Today's Communication
left third toe gangrene
Assessment / Plan
-
Left third toe gangrene
PAD
DM2
Plan for left 3rd toe amputation tomorrow. NPO after midnight. Discussed risks, benefits and complications of surgery at length. Surgical consent signed. All questions concerns answered.
Subjective
Chief Complaint
Left 3rd toe gangrene
Subjective
Patient awake and conversational at bedisde.
Objective
Temp Pulse Resp BP Pulse Ox
97.8 F 81 16 116/68 97
08/26/25 03:11 08/26/25 03:11 08/26/25 03:11 08/26/25 03:11 08/26/25 03:11
08/25/25 05:34
08/25/25 05:34
Vital Signs and Lab results were reviewed.
Physical Exam
Physical Exam
PE: Foot warm to touch, rubor present, loss of pedal hair, Multiple digital amputations. Remaining is the 4th toe and the third toe on the left foot. The third toe is dark, dry and necrotic. No fluid, no malodor. Dry gangrene is hard to touch.
[2025-08-26] MEDS: NOVOLOG FLEXPEN-MODERATE RESISTANCE SC ×2 (08:26→12:17)
[2025-08-26] MEDS: NOVOLOG FLEXPEN 15 UNITS SC (08:26)
[2025-08-26] MEDS: TRICOR 145 MG PO (08:27)
[2025-08-26] MEDS: ASPIR LOW (ENTERIC COATED) 81 MG PO (08:27)
[2025-08-26] MEDS: TOPROL XL 25 MG PO (08:27)
[2025-08-26] MEDS: LIORESAL 10 MG PO ×2 (08:27→19:45)
[2025-08-26] MEDS: HEPARIN 5000 UNITS SC ×2 (08:27→16:00)
[2025-08-26] MEDS: CYMBALTA DELAYED RELEASE 60 MG PO (08:27)
[2025-08-26] MEDS: PLAVIX 75 MG PO (08:27)
[2025-08-26] MEDS: ZETIA 10 MG PO (08:27)
[2025-08-26] MEDS: NEURONTIN 600 MG PO ×3 (08:27→21:35)
[2025-08-26 11:15] VITALS: BP 121/67
[2025-08-26 11:51] LABS: Glucose - Point of Care 51 mg/dl (70-99)
[2025-08-26] MEDS: NOVOLOG FLEXPEN SC (12:17)
[2025-08-26 12:19] LABS: Glucose - Point of Care 84 mg/dl (70-99)
--- NOTE | 2025-08-26 12:34 | CM ---
Met with patient @ beside
Pharmacy verified: [facility] @ [address], [place]
Lives alone; one floor home w/ basement; 1 step to enter; Ramp; bath has Walk-in Shower, shower chair, grab bar
PLOF: independent with ambulation, stairs and ADLs
DME: Dexcom Continuous Glucose Monitor
NO history of SNF or Home Health utilization
Cousin will transport home
Case Management Consult completed: patient reported that he recently placed of 46 yrs in a residential; [facility] counseling offered; patient agreeable to referral being sent
Contacted [facility] @ [phone]
Plan: Discharge to home; Registered Radiation Therapist will monitor for needs/services
[2025-08-26 13:01] LABS: Glucose - Point of Care 170 mg/dl (70-99)
--- NOTE | 2025-08-26 13:42 | W.PN.UPDATE ---
Update Note
Progress Note Update
Was seen and examined. Tells me that he ate superhealthy. Eats whole-wheat snowflake grains. Steak once a month. Otherwise a lot of chicken and fish
hypoglycemic, A1c 11.8
reduced with meal and long acting
hypoglycemic protocol
diabetes consultants to see tomorrow
[2025-08-26 14:12] LABS: Glucose - Point of Care 242 mg/dl (70-99)
[2025-08-26 15:00] VITALS: BP 136/75
[2025-08-26 17:09] LABS: Glucose - Point of Care 251 mg/dl (70-99)
[2025-08-26] MEDS: NOVOLOG FLEXPEN 12 UNITS SC (17:36)
[2025-08-26] MEDS: LANTUS 0.4 UNITS SC (17:37)
[2025-08-26] MEDS: NOVOLOG FLEXPEN-MODERATE RESISTANCE 5 UNITS SC (17:37)
[2025-08-26] MEDS: ROXICODONE 10 MG PO (19:45)
[2025-08-26 21:56] LABS: Glucose - Point of Care 37 mg/dl (70-99)
[2025-08-26 22:13] LABS: Glucose - Point of Care 55 mg/dl (70-99)
[2025-08-26 22:32] LABS: Glucose - Point of Care 77 mg/dl (70-99)
[2025-08-26] MEDS: TYLENOL 650 MG PO (22:51)
[2025-08-26 23:00] VITALS: BP 119/71
[2025-08-27] VITALS (7 sets, daily range): BP systolic 103–132; BP diastolic 64–94
[2025-08-27] MEDS: HEPARIN 5000 UNITS SC ×2 (00:17→23:24)
[2025-08-27 00:28] LABS: Glucose - Point of Care 170 mg/dl (70-99)
[2025-08-27 02:29] LABS: Glucose - Point of Care 175 mg/dl (70-99)
--- NOTE | 2025-08-27 06:37 | W.PN.UPDATE ---
Update Note
Progress Note Update
BS 37, advised to give apple juice, Dextrose. Patient had received 40 u Lantus at 1730.
BS 55> 77
Advised RN to give lunch meal
BS 170>175 in AM
NPO after MN
stable VS.
--- NOTE | 2025-08-27 07:53 | W.PN.VS ---
Addendum entered and electronically signed by Christian Tolentino MD 08/27/25 16:51:
Seen and examined with PAPER AND PRINTS RESTORER Cook earlier this a.m. Agree with findings and plan as discussed and noted below.
Original Note:
Today's Communication / Plan
-
Patient seen and examined at bedside with Dr. Christian Tolentino M.D., below plan reviewed with attending.
Assessment/Plan
-
POD 3 LLE angio with intervention
- Appreciate hospitalist management with blood sugar
- continue ASA and plavix, will transition to Plavix 75 mg p.o. daily and home Eliquis of 5 mg p.o. twice daily upon discharge. Eliquis currently on hold for planned amputation with podiatry today
- Podiatry to perform amputation of gangrene left foot digits
- N.p.o.
Subjective Data
-
Date of Service: August 27, 2025
Patient seen examined bedside, offers no complaints. Reports eagerness for podiatry potation today. Denies nausea, vomiting, fever, and chills.
Objective Data
-
Vital Signs
Temp Pulse Resp BP Pulse Ox
97.5 F 83 12 119/71 95
08/26/25 23:00 08/26/25 23:00 08/26/25 23:00 08/26/25 23:00 08/26/25 23:00
Intake and Output
08/26/25 08/27/25 08/28/25
06:59 06:59 06:59
Intake Total 2360 / 2360 3959 / 3959
Output Total 3400 / 3400
Balance -1040 / -1040 3959 / 3959
Intake:
Oral fluids 2360 / 2360 3959 / 3959
Output:
Urine, Voided 3400 / 3400
Other:
Number of approximated MODERATE 2
amounts of urine
Number of approximated LARGE 3 2
amounts of urine
Lab Results
08/25/25 05:34
08/25/25 05:34
Calcium 8.2 mg/dl (8.4-10.2) L 08/25/25 05:34
Phosphorus 3.7 mg/dl (2.5-4.5) 08/24/25 13:23
Magnesium 1.9 mg/dl (1.6-2.3) 08/24/25 13:23
Physical Exam
-
2+ PT bilaterally
mild edema LLE
gangrene L 3rd toe
Right groin groin soft, Tegaderm dressing removed.
--- NOTE | 2025-08-27 08:15 | PN.DE.MGMTRT ---
Insulin Management
- -
08/27/2025: Diabetes Management Follow up
69 year old male admitted for elective
PMH: HTN, HLD, CAD s/p ID, Paroxysmal Atrial Fibrillation, GERD, Anxiety/ Depression, PAD s/p toe amputations and Poorly controlled T2DM. A1C is 11.9%, Cr 0.8, eGFR>60. States he sees Endo Dr. Alcala in [facility]. Uses CGM- Dexcom G7. Was taking
Lantus 90 units @ HS and Lispro 27 units TID, and metformin 1000mg BID prior to admission.
Patient awake alert, oriented, resting in bed, offers no complaints, able to discuss diabetes care plan.
POD # 3 LLE angio with intervention. He is NPO for planned amputation of gangrene left foot digits.
Noted for 2 prolonged episodes of hypoglycemia around dinner time on 08/25 and 08/26 as low as 59, improved after treatment, this is likely a result of consistent meal time insulin administration and pt being on a diabetic diet while here in the
hospital. patient has previously reported that he sometimes misses taking his insulin and does not adhere to a diabetic diet at home. His Lantus dose was reduced to 40 units @ HS.
Will reduce AC NovoLog from 12 units to 8 units and change to low corrective with meals
HOLD off on resuming Metformin, will resume after all procedures and OR trips.
Closely monitor glucose trend and adjust insulin doses as needed for optimal glycemic control.
Diabetes History
- -
Type of Diabetes: 2 requiring insulin
Pre-Admission Diabetes Regimen
Lab Results
Hemoglobin A1c 11.9 % (4.0-5.9) H 08/24/25 13:23
Insulin Pump Settings
IP Diabetes Regimen
08/26/25 08/26/25 08/26/25
11:46 12:17 12:59
POC Glucose 51 L* 84 170 H
08/26/25 08/26/25 08/26/25
14:08 17:08 21:51
POC Glucose 242 H 251 H 37 L*
08/26/25 08/26/25 08/27/25
22:10 22:30 00:26
POC Glucose 55 L* 77 170 H
08/27/25
02:27
POC Glucose 175 H
Meal type: Dinner
Meal type: Dinner
Meal type: Lunch
Meal type: Breakfast
Amount consumed: 100%
Amount consumed: 100%
Amount consumed: 100%
Amount consumed: 100%
Patient Education
[2025-08-27 08:39] LABS: Glucose - Point of Care 120 mg/dl (70-99)
[2025-08-27] MEDS: NOVOLOG FLEXPEN-MODERATE RESISTANCE SC (09:03)
[2025-08-27] MEDS: NOVOLOG FLEXPEN SC ×3 (09:03→16:26)
[2025-08-27] MEDS: ASPIR LOW (ENTERIC COATED) PO (09:05)
[2025-08-27] MEDS: HEPARIN SC ×2 (09:05→16:25)
[2025-08-27] MEDS: PLAVIX PO (09:05)
[2025-08-27] MEDS: PLAVIX 75 MG PO (09:13)
[2025-08-27] MEDS: NEURONTIN 600 MG PO ×2 (09:13→21:16)
[2025-08-27] MEDS: TRICOR 145 MG PO (09:13)
[2025-08-27] MEDS: LIORESAL 10 MG PO ×2 (09:13→20:05)
[2025-08-27] MEDS: CYMBALTA DELAYED RELEASE 60 MG PO (09:13)
[2025-08-27] MEDS: ZETIA 10 MG PO (09:13)
[2025-08-27] MEDS: TOPROL XL 25 MG PO (09:13)
[2025-08-27] MEDS: ASPIR LOW (ENTERIC COATED) 81 MG PO (09:13)
--- NOTE | 2025-08-27 10:48 | CM ---
Patient seen at bedside on . Patient stated that he does not anticipate any discharge needs at this time. CM will continue to follow for discharge planning needs
Plan; home with no needs vs home with VN pending medical treatment plan
[2025-08-27 13:07] LABS: Glucose - Point of Care 122 mg/dl (70-99)
[2025-08-27] MEDS: NOVOLOG FLEXPEN-LOW RESISTANCE SC ×2 (13:15→16:26)
--- NOTE | 2025-08-27 13:30 | W.PN.UPDATE ---
Update Note
Progress Note Update
seen and examined.
likely has underlying hx of sleep apnea
rec outpt sleep study and sleep medicine follow up
hypoglycemia with known hx of iddm
again will need to reduce long and short acting insulin
appreciate diabetes consultants
left 3rd toe gangrene
plan for amputation with podiatry
continue to follow
[2025-08-27 16:21] LABS: Glucose - Point of Care 141 mg/dl (70-99)
[2025-08-27] MEDS: NEURONTIN PO (16:25)
[2025-08-27 17:55] LABS: Glucose - Point of Care 121 mg/dl (70-99)
--- NOTE | 2025-08-27 18:20 | PTCARENOTE ---
Pt received from the PACU via bed. Transport was w/o incident. Pt is AAOX3, HRR, lungs are clear, resp. easy. Pt denies pain and nausea. Right foot with bulky dressing 4X4's, Abd and Kerlix. No drainage noted at this time. Pulse positive with
Doppler to right foot. Accu check for BS 110. Vss, Pt is afebrile. Pt instructed on plan of care. Pt verbalized understanding of instructions. Call dutta is within reach.
[2025-08-27 18:27] LABS: Glucose - Point of Care 110 mg/dl (70-99)
[2025-08-27] MEDS: LANTUS 0.4 UNITS SC (18:38)
[2025-08-27 21:06] LABS: Glucose - Point of Care 232 mg/dl (70-99)
[2025-08-27] MEDS: ROXICODONE 10 MG PO (23:33)
[2025-08-28 03:00] VITALS: BP 128/78
[2025-08-28 06:59] LABS: Hematocrit 39.1 % (39.0-52.0); Hemoglobin 13.4 g/dL (13.0-18.0); Mean Corp Hgb Conc. 34.3 g/dL (33.0-37.0); Mean Corpuscular Volume 85.6 fL (80.0-94.0); Platelet Count 341 10^3/uL (130-400); Red Cell Dist. Width 13.0 % (11.5-14.5)
[2025-08-28 07:15] VITALS: BP 125/76
--- NOTE | 2025-08-28 07:25 | PN.DE.MGMTRT ---
Insulin Management
- -
08/28/2025: Diabetes Management Follow up
69 year old male admitted 08/24 for elective procedure - multiple stents to L tibial artery, balloon angioplasty to in stent restenosis distal left SFA and AK popliteal artery. PMH: HTN, HLD, CAD s/p GA, Paroxysmal Atrial Fibrillation, GERD,
Anxiety/ Depression, severe PVD with multiple toe amputations and Poorly controlled T2DM. A1C is 11.9%, Cr 0.8, eGFR>60. States he sees Endo Dr. Alcala in [facility]. Uses CGM- Snaptu G7. Was taking Lantus 90 units @ HS and Lispro 27 units TID, and
metformin 1000mg BID prior to admission.
Patient awake alert, oriented, resting in bed, offers no complaints, able to discuss diabetes care plan.
POD # 4 LLE angio with intervention. POD 1 amputation of L toes.
Lantus dose has been reduced from 90 at HS to 40 units at HS, AC novolog has been reduced from 27 units to 8 units due to multiple episodes of hypoglycemia.
Glucose range 110 to 232 yesterday.
08/28 Fasting glucose 57. Will further reduce HS lantus to 35 units, continue AC novolog 8 units with low corrective insulin. This insulin regimen appropriate for discharge. Encouraged patient to reduce caloric intake to continue reduced doses
of insulin.
Discussed with nurse.
Will follow.
Diabetes History
- -
Type of Diabetes: 2 requiring insulin
Pre-Admission Diabetes Regimen
Lab Results
Hemoglobin A1c 11.9 % (4.0-5.9) H 08/24/25 13:23
Insulin Pump Settings
IP Diabetes Regimen
08/27/25 08/27/25 08/27/25
08:38 13:06 16:19
POC Glucose 120 H 122 H 141 H
08/27/25 08/27/25 08/27/25
17:54 18:25 21:03
POC Glucose 121 H 110 H 232 H
Patient Education
[2025-08-28] MEDS: NOVOLOG FLEXPEN SC (08:31)
[2025-08-28] MEDS: NOVOLOG FLEXPEN-LOW RESISTANCE SC (08:31)
[2025-08-28] MEDS: TRICOR 145 MG PO (08:32)
[2025-08-28] MEDS: ZETIA 10 MG PO (08:32)
[2025-08-28] MEDS: NEURONTIN 600 MG PO (08:32)
[2025-08-28] MEDS: CYMBALTA DELAYED RELEASE 60 MG PO (08:32)
[2025-08-28] MEDS: HEPARIN 5000 UNITS SC (08:33)
[2025-08-28] MEDS: TOPROL XL 25 MG PO (08:33)
[2025-08-28] MEDS: ASPIR LOW (ENTERIC COATED) 81 MG PO (08:33)
[2025-08-28] MEDS: PLAVIX 75 MG PO (08:33)
[2025-08-28] MEDS: LIORESAL 10 MG PO (08:33)
[2025-08-28 09:07] VITALS: BP 125/76
[2025-08-28 10:10] LABS: Blood Urea Nitrogen 13 mg/dl (9-20); Calcium 8.6 mg/dl (8.4-10.2); Carbon Dioxide 22 mmol/L (22-30); Chloride 101 mmol/L (98-107); Estimated Creatinine Clearance 90 ml/min; Glucose 57 mg/dl (70-99); Potassium 4.6 mmol/L (3.5-5.1); Sodium 133 mmol/L (135-145); eGFR > 60.00
--- NOTE | 2025-08-28 10:39 | W.PN.VS ---
Today's Communication / Plan
-
Patient seen examined bedside with Dr. Mihai Guillory III, below plan reviewed with attending.
Assessment/Plan
-
POD 4 LLE angio with intervention, POD #1 left third toe amputation
Plan:
- Appreciate hospitalist management with blood sugar, will review current diabetic medication regimen with hospitalist and diabetic GRINDER NEEDLE TIP to see if patient is eligible for discharge today and for discharge medication recommendations
- continue ASA and plavix, will transition to Plavix 75 mg p.o. daily and home Eliquis of 5 mg p.o. twice daily upon discharge.
- Podiatry cleared patient for discharge and okay with weightbearing as long as patient is wearing forefoot offloading shoe at left foot
- Possible discharge later today
Subjective Data
-
Date of Service: August 28, 2025
Patient seen examined bedside, status post left third toe amputation with Dr. Avila. No apparent distress and offers no complaints. Denies nausea, vomiting, fever, and chills.
Objective Data
-
Vital Signs
Temp Pulse Resp BP Pulse Ox
98.1 F 87 16 125/76 97
08/28/25 07:15 08/28/25 07:15 08/28/25 07:15 08/28/25 07:15 08/28/25 07:15
Intake and Output
08/27/25 08/28/25 08/29/25
06:59 06:59 06:59
Intake Total 3959 / 3959 1320 / 1320
Output Total 1500 / 1500
Balance 3959 / 3959 -180 / -180
Intake:
Oral fluids 3959 / 3959 720 / 720
IV fluids (Total) 600 / 600
Output:
Urine, Voided 1500 / 1500
Other:
Number of approximated MODERATE 2
amounts of urine
Number of approximated LARGE 2
amounts of urine
Lab Results
08/28/25 05:22
08/28/25 05:22
Calcium 8.6 mg/dl (8.4-10.2) 08/28/25 05:22
Phosphorus 3.7 mg/dl (2.5-4.5) 08/24/25 13:23
Magnesium 1.9 mg/dl (1.6-2.3) 08/24/25 13:23
Physical Exam
-
2+ PT bilaterally
mild edema LLE
Status post left third toe amputation, postoperative dressing clean, dry, and intact
Right groin clean, dry, and intact.
[2025-08-28 11:20] VITALS: BP 135/82
--- NOTE | 2025-08-28 12:49 | CM ---
Patient seen at bedside on . Patient states that he is doing well and waiting for next steps. Pending update from [facility]. CM will continue to follow for discharge planning needs.
Plan; home with no needs pending medical treatment plan.
--- NOTE | 2025-08-28 12:54 | W.DS.TRANS ---
DC Summary - Clinical Veterinarian
-
Discharge Instructions:
Discharge Diagnosis/Procedures Diagnosis:
1. [place] artery atherosclerosis and occlusion
with left toe gangrene
2. Limb threatening ischemia, left lower
extremity
3. Diabetes with peripheral artery occlusive
disease and gangrene
Procedure 08/24/2025
1. Intravascular lithotripsy to left posterior
tibial artery occlusion using Shockwave javelin
2. Bioabsorbable drug-eluting scaffold stent
placement to left distal below knee popliteal
artery extending to the proximal tibioperoneal
trunk (3.75 x 38 mm Grubbs Esprit, postdilated
to 4 mm)
3. Bioabsorbable drug-eluting scaffold stent
placement to tibioperoneal trunk extending into
proximal posterior tibial artery (3 mm x 38 mm
Grubbs Esprit, postdilated to 3.5 mm)
4. Bioabsorbable drug-eluting scaffold stent
placement to mid and distal posterior tibial
artery (2.5 mm x 38 mm Grubbs Esprit,
postdilated to 3 mm mid PT; 3 mm x 28 mm Grubbs
Esprit distal PT)
5. Drug-coated balloon angioplasty to in-stent
restenosis distal left SFA and above-knee
popliteal artery stenosis (6 mm x 150 mm Lutonix
)
6. Balloon angioplasty and stenting of left
popliteal artery stenosis (7 mm x 170 mm
LifeStent)
7. Diagnostic aortobiiliac arteriogram
8. Diagnostic left lower extremity arteriogram
9. Ultrasound-guided percutaneous RETROGRADE
pedal access, left posterior tibial artery at
the ankle
10. Ultrasound-guided percutaneous right common
femoral artery access
Procedure 08/27/2025
Left foot third digit amputation
Diet As tolerated
Activity No strenuous activity,Other activity
Additional Activity Can bear weight on left foot only if wearing
fore front offloading shoe that was provided to
you during this hospital stay
Driving Restrictions As prior to admission
Bathing Restrictions You cannot get your left foot wet
Others Tests Your follow-up ultrasound is scheduled on: 09/28
@ 9am here at [facility]
Instructions:
Stand-Alone Forms:
Changes to Home Medications: Yes
Discharge Medications:
DC Medications w/original date entered in [facility]
apixaban 5 mg tablet (Eliquis) 5 mg PO BID Blood Clot Prevention/Tx 07/24/23
ezetimibe 10 mg tablet (Zetia) 10 mg PO DAILY High Cholesterol 07/24/23
fenofibrate nanocrystallized 145 mg tablet 145 mg PO DAILY High Cholesterol 07/24/23
evolocumab 140 mg/mL subcutaneous syringe (Repatha Syringe) 140 mg SC SA High Cholesterol 08/23/25
pantoprazole 20 mg tablet,delayed release 20 mg PO DAILYPRN PRN hiccups 08/23/25
baclofen 10 mg tablet 10 mg PO BID 08/24/25
duloxetine 60 mg capsule,delayed release 60 mg PO DAILY Mental Health/Anxiety 08/24/25
gabapentin 600 mg tablet 600 mg PO TID Neurological Condition 08/24/25
metoprolol succinate 25 mg tablet,extended release 24 hr 25 mg PO DAILY Blood Pressure 08/24/25
oxycodone 10 mg tablet 10 mg PO TID PRN pain 08/24/25
clopidogrel 75 mg tablet 75 mg PO DAILY #90 tabs 08/28/25
insulin glargine 100 unit/mL (3 mL) subcutaneous pen (Lantus Solostar U-100 Insulin) 35 unit (0.35 mL) SC QPM Diabetes #0 mL 08/28/25
insulin lispro 100 unit/mL subcutaneous pen (Humalog KwikPen (U-100) Insulin) 8 unit (0.08 mL) SC TID Diabetes #0 mL 08/28/25
Doxycycline 100 mg p.o. twice daily for 10 days
Home Medication Changes
Change dose of:
insulin glargine 100 unit/mL (3 mL) subcutaneous pen (Lantus Solostar U-100 Insulin) 35 unit (0.35 mL) SC QPM Diabetes #0 mL 08/28/25
insulin lispro 100 unit/mL subcutaneous pen (Humalog KwikPen (U-100) Insulin) 8 unit (0.08 mL) SC TID Diabetes #0 mL 08/28/25
Stopped:
Aspirin 81 mg p.o. daily
Added:
clopidogrel 75 mg tablet 75 mg PO DAILY #90 tabs 08/28/25
Doxycycline 100 mg p.o. twice daily for 10 days
Pending Results: Yes
Additional Pending Results:
Preliminary results present for wound culture from toe amputation on 08/27/2025 with podiatry, placed on doxycycline p.o. for antibiotic as pulmonary tissue culture is positive for Staphylococcus aureus
[2025-08-28 13:09] LABS: Glucose - Point of Care 246 mg/dl (70-99)
[2025-08-28 13:09] LABS: Glucose - Point of Care 112 mg/dl (70-99)
[2025-08-28 13:09] LABS: Glucose - Point of Care 71 mg/dl (70-99)
[2025-08-28] MEDS: NOVOLOG FLEXPEN-LOW RESISTANCE 2 UNITS SC (13:11)
[2025-08-28] MEDS: NOVOLOG FLEXPEN 8 UNITS SC (13:12)
--- NOTE | 2025-08-28 13:34 | CM ---
Patient seen at bedside in [address] [place] [address]. Patient for discharge. Patient IMM completed verbally as patient unable to sign at this time. CM will continue to follow for discharge planning needs.
Plan; home with no needs.
== END 2025-08-28 14:28 | disposition home or self-care (01) | DRG 279 ==
LOC: 2 SOUTH 12:44
PROVIDERS: Nurse Practitioner; Nurse Practitioner Acute Care; ADMITTING PHYSICIAN Surgery Vascular Surgery; CONSULT PHYSICIAN Podiatrist; OTHER PHYSICIAN Internal Medicine; PRIMARYCARE PHYSICIAN Family Medicine
PROC: 047N35Z Dilation of Left Popliteal Artery with Two Drug-eluting Intraluminal Devices, Percutaneous Approach (ICD-10-PCS; 2025-08-24)
PROC: 04FS3ZZ Fragmentation of Left Posterior Tibial Artery, Percutaneous Approach (ICD-10-PCS; 2025-08-24)
PROC: 047S34Z Dilation of Left Posterior Tibial Artery with Drug-eluting Intraluminal Device, Percutaneous Approach (ICD-10-PCS; 2025-08-24)
PROC: B41D1ZZ Fluoroscopy of Aorta and Bilateral Lower Extremity Arteries using Low Osmolar Contrast (ICD-10-PCS; 2025-08-24)
PROC: 047L3Z1 Dilation of Left Femoral Artery using Drug-Coated Balloon, Percutaneous Approach (ICD-10-PCS; 2025-08-24)
PROC: 0Y6U0Z0 Detachment at Left 3rd Toe, Complete, Open Approach (ICD-10-PCS; 2025-08-27)
DX: E11.52 Type 2 diabetes mellitus with diabetic peripheral angiopathy with gangrene (principal); I70.262 Atherosclerosis of native arteries of extremities with gangrene, left leg; T82.856A Stenosis of peripheral vascular stent, initial encounter; E78.5 Hyperlipidemia, unspecified; I48.0 Paroxysmal atrial fibrillation; I10 Essential (primary) hypertension; I25.10 Atherosclerotic heart disease of native coronary artery without angina pectoris; K21.9 Gastro-esophageal reflux disease without esophagitis; F32.A Depression, unspecified; E66.9 Obesity, unspecified; E11.649 Type 2 diabetes mellitus with hypoglycemia without coma; I25.2 Old myocardial infarction; Y83.1 Surgical operation with implant of artificial internal device as the cause of abnormal reaction of the patient, or of later complication, without mention of misadventure at the time of the procedure; Y71.3 Surgical instruments, materials and cardiovascular devices (including sutures) associated with adverse incidents; Z68.29 Body mass index [BMI] 29.0-29.9, adult; Z79.01 Long term (current) use of anticoagulants; Z79.4 Long term (current) use of insulin; Z79.82 Long term (current) use of aspirin; Z79.891 Long term (current) use of opiate analgesic; Z79.899 Other long term (current) drug therapy; Z87.891 Personal history of nicotine dependence; Z89.422 Acquired absence of other left toe(s); Z89.421 Acquired absence of other right toe(s); Z95.1 Presence of aortocoronary bypass graft; Z98.1 Arthrodesis status
CPT/HCPCS: 37226; 75625; 75710; 80048; 80306; 80307; 81003; 81015; 82010; 82077; 82962; 82977; 83036; 83735; 84100; 85027; 85610; 85730; 87070; 87075; 87147; 87186; 87205; 88305; 88311; 93005; C1725; C1769; C1874; C1876; C1894; C2623; C9773; Q9967